=== PATIENT | male | born 1960 | race Caucasian/White ===

== ENCOUNTER 2022-08-20 13:28 | Emergency (ER) | payer OTHER ==
[~2022-08-20] VITALS: Ht 172.7 cm; Wt 81.7 kg
[2022-08-20] MEDS ORDERED: CEPHALEXIN500 M1 PO (14:31)
== END 2022-08-20 14:57 | disposition home or self-care (01) ==
LOC: ED 13:28
DX: S61.210A Laceration without foreign body of right index finger without damage to nail, initial encounter (principal); S60.512A Abrasion of left hand, initial encounter; L03.011 Cellulitis of right finger; W26.9XXA Contact with unspecified sharp object(s), initial encounter
CPT/HCPCS: 90471; 90715; 99283-25; A9270